=== PATIENT | male | born 1995 | race Two or more races ===

== ENCOUNTER 2021-08-02 12:14 | Emergency (ER) | payer SELFPAY ==
[~2021-08-02] VITALS: Ht 175.3 cm; Wt 74.8 kg
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
[2021-08-02 12:24] VITALS: BP 112/70
--- NOTE | 2021-08-02 12:35 | NUR ---
X RAY AT BEDSIDE
[2021-08-02] MEDS ORDERED: IBUP-1955 PO (12:52)
--- NOTE | 2021-08-02 12:57 | NUR ---
Patient discharged to home in stable condition. Written and verbal after care instructions given. Patient verbalizes understanding of instruction.
== END 2021-08-02 12:59 | disposition home or self-care (01) ==
LOC: ER 12:17
DX: S43.102A Unspecified dislocation of left acromioclavicular joint, initial encounter (principal); V28.4XXA Motorcycle driver injured in noncollision transport accident in traffic accident, initial encounter; Y93.89 Activity, other specified; Y92.89 Other specified places as the place of occurrence of the external cause; Y99.8 Other external cause status
CPT/HCPCS: 73030-TC